=== PATIENT | female | born 1945 | race Caucasian/White ===

== ENCOUNTER 2016-10-02 17:07 | Emergency (ER) | payer MEDICARE ==
[~2016-10-02] VITALS: Ht 167.6 cm; Wt 68.2 kg
[~2016-10-02 17:07] MED LIST: CALC500T61 PO; CHOL200020 PO; LACT1CAP73 PO; LISI-567 PO; PHYT100T PO; TRAM50TA2 PO; [UNRECOGNIZED DRUG - OTHER] PO
[2016-10-02 17:12] VITALS: BP 119/68; PULSE 81; RESP 16; O2SAT 100
--- NOTE | 2016-10-02 17:23 | ED.REPORT ---
HPI-Bite: Human/Animal Date of Service October 02, 2016 ED Provider: Heri Yu MD The patient is a 71 year old female with a medical history including osteoporosis, hypertension, and CAD who presents to the ED with cat bites and scratches to her bilateral arms onset just prior to arrival. The patient has been taking care of her friend's cat which got out today and was apparently reluctant to return to the house. The patient denies additional injury/trauma or other symptoms. She has received similar bites and scratches from her own cat in the past. Nursing Notes Stated Complaint: CAT BITES AND SCRATCHES Chief Complaint: Skin Rash/Abscess Nursing Notes Reviewed: Yes Allergies: Coded Allergies: Contrast Media (Verified Allergy, Severe, Anaphylaxis, 10/02/16) iodine (Verified Allergy, Unknown, 10/02/16) Scheduled ([bariactric multi]) 1 TAB-CAP PO DAILY Lisinopril (Lisinopril) 20 Mg Tablet 10 MG PO DAILY Scheduled PRN Tramadol (Tramadol) 50 Mg Tablet 100 MG PO AM PRN PRN For Pain Miscellaneous Medications Calcium Carbonate (Calcium) 500 Mg Tablet 1,200 MG PO Cholecalciferol (Vitamin D3) (Vitamin D-3) 2,000 Unit Capsule 6,000 UNIT PO Lactobacillus Combo No.11 (Probiotic) 1 Each Cap.sprink 1 EACH PO Phytonadione (Vitamin K) 100 Mcg Tablet 100 MCG PO General Time Seen by MD: 17:19 Chief Complaint Cat bite, Cat scratch Hx Obtained From: Patient Arrived By: Walk-in Onset Occurred: Just prior to arrival Symptom Duration: Since onset Location: : Arm left: Arm right Quality: Painful Severity: Current: Moderate Severity: Maximum: Moderate Pertinent Negative: Relieved by nothing Context: Immunizations Immunizations: Tetanus up to date Recent Healthcare: No recent doctor visit Similar Sx Previous: Yes Past Medical History Past Medical History Osteoporosis Hypertension History of diabetes, quickly resolved after bariatric surgery Kidney stones Reports: Coronary artery disease, GERD, Hypertension Past Surgical History Right knee surgery Duodenal switch bariatric surgery in 1999. Right femur distal fracture. Right tibial plateau fracture. Right total hip replacement. Reports: Appendectomy, CABG, Cholecystectomy, Hysterectomy (2000), Tonsillectomy Reports: Gastric bypass Smoking History Former Smoker Social History Alcohol Use: "Social" Ambulatory Status Independent Review of Systems Review of Systems Note: + Cat bites and scratches to bilateral arms Constitutional: Denies: Fever Complete sys rev & neg: except as marked. Respiratory: Denies: Non-productive cough, Shortness of breath GI: Denies: Diarrhea, Vomiting Musculoskeletal: Reports: Extremity pain (Bilateral arms) Physical Exam Vital Signs Vital Signs (First) Date Time Temp Pulse Resp B/P Pulse Ox O2 Delivery O2 Flow Rate FiO2 10/02/16 17:12 36.6 81 16 119/68 100 Room Air Initial VS: Reviewed Head / Eyes: Atraumatic, Normocephalic ENT: Conjunctiva normal, No scleral icterus Neck: Supple, Full range of motion Extremities: Vascular intact, Neuro intact, No swelling Neurologic: Alert, Oriented, Nonfocal Psychiatric: Mood/affect normal, Behavior normal, Normal thought content General/Constitutional: Awake, Alert, No acute distress Skin: Warm, Dry Multiple scratches and cat bites to upper extremities Re-Eval/Medical Decision Old records Re-Evaluation/Progress : Time of Eval: 18:00 Patient Status: Condition improved Re-Evaluation/Progress Note: Discussed with patient physical exam findings, diagnosis, and plan for discharge. Follow-up and return to the ER instructions given. Patient agrees with plan for care and all questions were addressed. Counseled Regarding: Diagnosis, Need for follow-up, When/why to return to ED Discharge & Departure Impression: Primary Impression: Cat bite Encounter type: initial encounter Qualified Code: W55.01XA - Bitten by cat, initial encounter Additional Impression: Cat scratch Disposition: Home Discharge Condition All VS Reviewed: Yes Condition: Improved Patient Instructions: Animal Bite (ED) Additional Instructions: Thank you for entrusting us with your care. Please take Augmentin as prescribed to prevent infection that would almost certainly occur without antibiotics. Call your primary care provider on Monday for a follow-up appointment as needed. Return to the ER with any new or worsening symptoms including redness, swelling , pain, or fever. Referrals: Jeff Rob MD (PCP) Scribe Attestation Portions of this note were transcribed by Deedee Brown. I, Dr. Yu, personally performed the history, physical exam, and medical decision-making; I reviewed and confirmed the accuracy of the information in the transcribed note. Signed by: Veronica Cruz, 10/02/2016, 19:35 copies to: Jeff Rob MD, Kirk H MD October 02, 2016 17:23 DEEDEE BROWN October 02, 2016 17:30
[2016-10-02] MEDS ORDERED: _Amoxicillin-Clavulanate 875-125 mg Tablet PO SCH (20:30)
== END 2016-10-02 18:25 | disposition home or self-care (01) ==
LOC: SED 17:07
DX: S40.871A Other superficial bite of right upper arm, initial encounter (principal); S40.872A Other superficial bite of left upper arm, initial encounter; S50.871A Other superficial bite of right forearm, initial encounter; S50.872A Other superficial bite of left forearm, initial encounter; W55.01XA Bitten by cat, initial encounter; Y93.89 Activity, other specified; Y99.8 Other external cause status; Y92.019 Unspecified place in single-family (private) house as the place of occurrence of the external cause; I10 Essential (primary) hypertension; K21.9 Gastro-esophageal reflux disease without esophagitis; I25.10 Atherosclerotic heart disease of native coronary artery without angina pectoris; F12.10 Cannabis abuse, uncomplicated; Z87.442 Personal history of urinary calculi; Z87.891 Personal history of nicotine dependence; Z98.84 Bariatric surgery status; Z90.49 Acquired absence of other specified parts of digestive tract; Z95.1 Presence of aortocoronary bypass graft; Z88.8 Allergy status to other drugs, medicaments and biological substances